=== PATIENT | female | born 1995 | race Hispanic/Latino ===

== ENCOUNTER 2016-05-17 09:48 | Observation (INO) | payer OTHER ==
[2016-05-16 12:12] VITALS: BMI 21.4
[2016-05-17] MEDS ORDERED: Lactated Ringer's 1,000 ML IV ONE ×2 (10:23→16:15)
[2016-05-17 11:04] LABS: HEMATOCRIT 38.5 % (34.0-47.0); MEAN CELL VOLUME 90.8 fl (81.0-99.0); MEAN CORPUSCULAR HEMOGLOBIN 31.1 pg (27.0-31.0); MEAN CORPUSCULAR HGB CONC 34.3 g/dL (33.0-37.0); WHITE BLOOD COUNT 6.5 K/uL (4.8-10.8)
[2016-05-17] MEDS ORDERED: Bupivacaine 0.25%-Epinephrine 1:200,000 (30 ml) Inj ONE (14:48)
[2016-05-17] MEDS ORDERED: Midazolam 2 MG/2 ML VIAL ONE (15:32)
[2016-05-17] MEDS ORDERED: Rocuronium 10 mg/ml (5 ml) ONE ×2 (15:32→15:33)
[2016-05-17] MEDS ORDERED: Propofol 10 mg/ml Inj (20 ML) ONE (15:32)
[2016-05-17] MEDS ORDERED: Succinylcholine 200 mg/10 ml Inj IV ONE (15:32)
[2016-05-17] MEDS ORDERED: Neostigmine Methylsulfate 3mg/3ml Syringe IV ONE (17:05)
[2016-05-17] MEDS ORDERED: Lidocaine 1% Inj (20ml) IJ ONE (17:26)
[2016-05-17] MEDS ORDERED: Dexamethasone 4 mg/1 ml ONE (17:32)
--- NOTE | 2016-05-17 17:52 | PCM.SURG1 ---
Surgeon's Initial Post Op Note - Surgeon's Notes Surgeon: Navi Radiologic Technologist: [id number] Type of Anesthesia: General Endo Pre-Operative Diagnosis: Endometriosis Operative Findings: Endometriosis, adhesions Post-Operative Diagnosis: Endometriosis, adhesions Operation Performed: Robotic excision of endometriosis, CLARKE, ureteral stenting, cystoscopy Specimen/Specimens Removed: endometriosis Estimated Blood Loss: EBL {In ML}: 2 Blood Products Given: N/A Drains Used: No Drains Post-Op Condition: Good Date of Surgery/Procedure: 05/17/16 Time of Surgery/Procedure: 16:30
[2016-05-17] MEDS ORDERED: Lactated Ringer's 1,000 ML IV SCH ×2 (18:00→18:15)
[2016-05-17] MEDS ORDERED: HYDROmorphone 0.5 mg/0.5 ml ISec IVP PRN (18:01)
--- NOTE | 2016-05-17 23:52 | PCM.SURG1 ---
Surgeon's Initial Post Op Note - Surgeon's Notes Surgeon: kiley jha md Balance Recesser: burgess wilson md [id number] Type of Anesthesia: General Endo, Local Pre-Operative Diagnosis: Chronic pelvic pain. Endometriosis Operative Findings: Exetensive intrapelvic adhesions. Severe Bowel adhesions. pelvic culdesac endoemtriosis. normal bladder anatomy as per cystosopy. . detailed operative report. This is a 20 years old female with chronic pelvic pain, severe dyspareunia, and history of endometriosis, following multiple laparoscopic robotic procedures addressing the same problem. This patient described this pain as debilitating and limiting her daily activity and adversely affecting her quality of life. Following a complete work up at the office which included a U/S, pelvic and abdominal MRI, vaginal cultures, hematology and chemistry, decision was made to proceed with a robotic assisted excision of endometriomas, endometriosis excision / ablation and lysis of adhesions. After proper consent was obtained from the patient, she was taken to the operating room, placed in lithotomy position, her legs placed in adjustable stirrups. Careful attention was placed to avoid hyperflexion or hyper -rotation of the lower extremities. Exam under anesthesia revealed a non- mobile small uterus, cervix displaced anteriorly, with adnexal fullness bilaterally, and nodularity appreciated the posterior fornix. She was prepped and draped for a robotic excision of endometriosis. Waddell catheter was placed in sterile condition. Weighted speculum was placed in the vagina, the anterior lip of the cervix was grasped with a tenaculum, and the cervix was dilated to allow a V-Care uterine manipulator insertion into the endometrial cavity. ddecision was made to utilize firefly , icy Green contrast solution to be introduced into the ureters to aid in the visualization of the ureters during this procedure. This is an anticipated very difficult procedures as to her prior surgeries as well as prior operative reports. prior to the start of the surgery, cystoscopy was completed, indicating normal appearing bladder anatomy. Both ureters were stented with a 5 [place]une[place] stent, introducing icy Green solution into both ureters. Waddell catheter was reinserted. While tenting the abdominal wall, a veres needle was inserted through the umbilicus and a pneumoperitoneum was obtained. A 1cm vertical incision was made approx. 1 cm above the umbilicus and a trocar and sleeve were introduced. The patient was placed in Trendelenburg position. A robotic camera was introduced and an initial survey of the pelvic cavity revealed extensive peritoneal adhesions, bowel tightly adherent to the anterior abdominal wall on the patient right side as well as to the pelvic side wall. the omentum was tightly adherent to the pelvic sidewall as well as to the anterior abdominal wall adjacent to the bladder. Tightly adherent bowel loops to the pelvic sidewalls bilaterally were appreciated. A complete survey also revealed extensive peritoneal adhesions in the posterior cul-de-sac involving both ovaries and tubes. Both ovaries and tubes appeared adherent. Two robotic ports were used for the procedure and were inserted through 5 mm incisions. The first port was inserted on the right side approximately 7 cm cephalad to the superior iliac crest; the second port was placed in a mirror image location on the contralateral side. Lateral side docking was achieved with the robot with no difficulty. A monopolar shear was inserted through the port on the right side and a PK was inserted through the port on the left side. Both ureters were visualized with peristalsis prior to the excision and ablation of endometriosis and adhesiolysis at the pelvic brim however further distally, the adhesions were tightly bound to the pelvic sidewall overlying the ureters. Meticulous lysis of peritoneal adhesions and ablation of endometriosis was accomplished with the luz and the PK. a long and meticulous process of anterolysis was necessary to access the the posterior cul-de-sac with endometriosis. Following meticulous anterolysis, and prior to the excision of the large endometriomas, it was necessary to explore both ureters and their courses in order to avoid structural compromise to ureters. The peritoneum over pelvic sidewall was opened, the ureters were traced from the pelvic brain overlying the bifurcation of the iliac vessels and traced down towards the lower uterine segment bilaterally. The ureters were retracted laterally in order to safely lysed off adjacent bowel loops, fallopian tubes and ovaries. Careful attention was paid to conserve as much ovarian tissue as possible as well as maintain viable blood supply to both ovaries. Excellent hemostasis was noted. extensive lysis of adhesions were carried out to free up the pelvic anatomy and restore somewhat of a normal-appearing anatomy. The left broad ligament was compromised during her prior surgeries and appeared tightly adherent to the anterior abdominal wall. Lysis of adhesions restored relaxed broad ligament without any tight adhesions. The omentum was freed from the anterior abdominal wall adjacent to the bladder. multiple endometriosis lesions were lysed and then excised and sent to pathology. The abdomen was throughout irrigated and cleared of clots and debris. The ureters were once again visualized with peristalsis and excellent hemostasis noted throughout. Flow-seal and inter-seed to prevent further adhesions placed over the excision / ablation beds. All instruments were removed under direct visualization; the robotic arms were undocked. Pneumoperitoneum was reduced. The camera port was closed at a fascial layer with a 2-0 vicryl. All skin incisions were closed with a 4-0 monocryl in a subcuticular fashion. The Vcare was removed and Waddell remained to be removed the next morning. diagnostic cystoscopy was then performed again. Bladder anatomy appeared normal both ureters were effluxing urine freely. Prior to incision, patient received prophylactic antibiotics ( Ancef), prior to closure, sponge lap and needle count were correct times two. Patient was taken to recovery room under stable condition. Of note: This was an exceptionally difficult surgical procedure, requiring a high level of expertise in order to lyse off height bowel adhesions and somewhat restore pelvic anatomy to allow further reproductive attempts via in vitro fertilization. extremely difficult surgical case due to distorted anatomy and severe adhesions and endometriosis. Post-Operative Diagnosis: Chronic pelvic pain. Endometriosis. peritoneal bowel adhesions Operation Performed: Robotic excision of endometriosis. Lysis of adhesions. Enterolysis. Insertion of ureteral stents. Cystosocpy Specimen/Specimens Removed: Endometriosis Estimated Blood Loss: EBL {In ML}: 10 Blood Products Given: N/A Drains Used: No Drains Post-Op Condition: Good Date of Surgery/Procedure: 05/17/16 Time of Surgery/Procedure: 18:00
[2016-05-18] MEDS ORDERED: Benzocaine/Menthol (Cepacol) Lozenge PO PRN (00:53)
[2016-05-18 07:34] VITALS: BP 101/67; PULSE 84; RESP 18; TEMP 98.5; O2SAT 97
[2016-05-18 07:56] LABS: BASO % 0.2 % (0.0-2.0); HEMATOCRIT 41.5 % (34.0-47.0); LYMPH # 0.8 K/uL (1.0-4.3); LYMPH % 3.4 % (20.0-40.0); MEAN CELL VOLUME 92.3 fl (81.0-99.0); MEAN CORPUSCULAR HEMOGLOBIN 30.9 pg (27.0-31.0); MEAN CORPUSCULAR HGB CONC 33.5 g/dL (33.0-37.0); MEAN PLATELET VOLUME 9.2 fl (7.2-11.7); MONO # 0.8 K/uL (0.0-0.8); MONO % 3.6 % (0.0-10.0); NEUT # 21.7 K/uL (1.8-7.0); NEUT % 92.8 % (50.0-75.0); NRBC % 0.1 % (0.0-0.0); PLATELET COUNT 202 K/uL (130-400); RED CELL DISTRIBUTION WIDTH 12.6 % (11.5-14.5); WHITE BLOOD COUNT 23.4 K/uL (4.8-10.8)
[2016-05-18 08:01] LABS: BLOOD UREA NITROGEN 23 mg/dl (7-17); CALCIUM 9.4 mg/dL (8.4-10.2); CARBON DIOXIDE 24 mmol/L (22-30); CHLORIDE 103 mmol/L (98-107); GFR AFRICAN-AMERICAN > 60; GLUCOSE,RANDOM 124 mg/dL (65-105); POTASSIUM 4.5 MMOL/L (3.6-5.0); SODIUM 141 mmol/l (132-148)
--- NOTE | 2016-05-18 08:24 | CP.PCM.DIS ---
Provider - Provider Date of Admission: 05/17/16 17:52 Attending physician: Nila Mcelroy MD Primary care physician: Nila Mcelroy MD Time Spent in preparation of Discharge (in minutes): 20 Diagnosis - Discharge Diagnosis (1) Endometriosis Status: Resolved Priority: Medium Hospital Course - Lab Results Lab Results: Most Recent Lab Values WBC 23.4 K/uL (4.8-10.8) H D 05/18/16 06:40 RBC 4.50 Mil/uL (3.80-5.20) 05/18/16 06:40 Hgb 13.9 g/dL (12.0-16.0) 05/18/16 06:40 Hct 41.5 % (34.0-47.0) 05/18/16 06:40 MCV 92.3 fl (81.0-99.0) 05/18/16 06:40 MCH 30.9 pg (27.0-31.0) 05/18/16 06:40 MCHC 33.5 g/dL (33.0-37.0) 05/18/16 06:40 RDW 12.6 % (11.5-14.5) 05/18/16 06:40 Plt Count 202 K/uL (130-400) 05/18/16 06:40 MPV 9.2 fl (7.2-11.7) 05/18/16 06:40 Neut % (Auto) 92.8 % (50.0-75.0) H 05/18/16 06:40 Lymph % (Auto) 3.4 % (20.0-40.0) L 05/18/16 06:40 Avery % (Auto) 3.6 % (0.0-10.0) 05/18/16 06:40 Eos % (Auto) 0.0 % (0.0-4.0) 05/18/16 06:40 Baso % (Auto) 0.2 % (0.0-2.0) 05/18/16 06:40 Neut # 21.7 K/uL (1.8-7.0) H 05/18/16 06:40 Lymph # 0.8 K/uL (1.0-4.3) L 05/18/16 06:40 Avery # 0.8 K/uL (0.0-0.8) 05/18/16 06:40 Eos # 0.0 K/uL (0.0-0.7) 05/18/16 06:40 Baso # 0.0 K/uL (0.0-0.2) 05/18/16 06:40 Sodium 141 mmol/l (132-148) 05/18/16 06:40 Potassium 4.5 MMOL/L (3.6-5.0) 05/18/16 06:40 Chloride 103 mmol/L (98-107) 05/18/16 06:40 Carbon Dioxide 24 mmol/L (22-30) 05/18/16 06:40 Anion Gap 18 (10-20) 05/18/16 06:40 BUN 23 mg/dl (7-17) H 05/18/16 06:40 Creatinine 0.8 mg/dL (0.7-1.2) 05/18/16 06:40 Est GFR ( Amer) > 60 05/18/16 06:40 Est GFR (Non-Af Amer) > 60 05/18/16 06:40 Random Glucose 124 mg/dL (65-105) H 05/18/16 06:40 Calcium 9.4 mg/dL (8.4-10.2) 05/18/16 06:40 Blood Type AB POSITIVE 05/17/16 10:50 Blood Type Confirm AB POSITIVE 05/17/16 11:02 Antibody Screen Negative 05/17/16 10:50 BBK History Checked No verified bt 05/17/16 10:50 - Hospital Course Hospital Course: 20F presented to [facility] for Robotic excision of endometriosis. Tolerated the procedure well and was able to be discharged the next day. Discharge Exam - Head Exam Head Exam: ATRAUMATIC, NORMOCEPHALIC - Eye Exam Eye Exam: EOMI, PERRL. absent: Scleral icterus - Respiratory Exam Respiratory Exam: NORMAL BREATHING PATTERN. absent: Respiratory Distress - GI/Abdominal Exam GI & Abdominal Exam: Soft, Tenderness (at incision sites). absent: Distended, Firm, Guarding, Rigid - Neurological Exam Neurological exam: Alert, Oriented x3 - Psychiatric Exam Psychiatric exam: Normal Affect, Normal Mood - Skin Skin Exam: Dry, Warm Discharge Plan - Follow Up Plan Condition: GOOD Disposition: HOME/ ROUTINE Instructions: Endometriosis (DC) Additional Instructions: Follow up with Dr Mcelroy in office within 2 weeks. Call for fever more than 101 or pain uncontrolled by OTC meds. Ok to Shower, no baths. Regular diet. No Heavy lifting until Dr. Mcelroy approves. Referrals: Nila Mcelroy MD [Primary Care Provider] -
[2016-05-18] MEDS ORDERED: ceFAZolin 1 GM in Sodium Chloride 0.9% 100 ML IVPB STA (09:29)
[2016-05-18 09:56] LABS: BASOPHIL 1 % (0-2); NEUTROPHIL 86 % (42-75); REACTIVE LYMPHOCYTES 1 % (0-0); TOTAL CELLS COUNTED 100
[2016-05-18 10:01] LABS: LARGE PLATELETS PRESENT; STOMATOCYTES SLIGHT
== END 2016-05-18 12:00 | disposition home or self-care (01) ==
LOC: H.OPSURG 09:48 → H.MEDSURG1 17:52
PROVIDERS: ADMIT Obstetrics & Gynecology; ATTEND Obstetrics & Gynecology
DX: N80.3 Endometriosis of pelvic peritoneum (principal); N73.6 Female pelvic peritoneal adhesions (postinfective); N94.10 Unspecified dyspareunia